=== PATIENT | female | born 1965 | race Caucasian/White ===

== ENCOUNTER 2022-02-06 11:09 | Outpatient (CLI) | payer BC, SELFPAY ==
[2022-02-06 17:55] LABS: Chloride* 105 mmol/L (96-114); Potassium* 4.2 mmol/L (3.6-5.1); Sodium* 137 mmol/L (135-149)
[2022-02-06 17:58] LABS: Carbon Dioxide* 25 mmol/L (20-32); Creatinine* 0.9 mg/dL (0.5-1.5); Estimated Glomerular Filt Rate 74 ml/min
[2022-02-06 17:59] LABS: Blood Urea Nitrogen* 22 mg/dL (7-30); Glucose* 103 mg/dL (60-115)
== END 2022-02-06 11:10 | disposition home or self-care (01) ==
LOC: LONREF 11:10
PROVIDERS: PCP Nurse Practitioner Family; Visit Provider Nurse Practitioner Family
DX: Z01.818 Encounter for other preprocedural examination (principal)
CPT/HCPCS: 80048

== ENCOUNTER 2022-02-19 07:41 | Day surgery (SDC) | payer BC, SELFPAY ==
[2022-02-12] MEDS: MIDAZOLAM HCL 1 MG/ML inj IVP (09:20)
[2022-02-19] VITALS (12 sets, daily range): BP systolic 100–125; BP diastolic 43–70; PULSE 52–73; RESP 16–20; TEMP 35.9–36.2; O2SAT 91–100; BMI 28.7
--- NOTE | 2022-02-19 | CRLHL7_ITS ---
For Patients: As a result of the Century Cures Act, medical imaging exams and procedure reports are released immediately into your electronic medical record. You may view this report before your referring provider. If you have questions, please contact your health care provider. INDICATION: Intraoperative. TECHNIQUE: Intraoperative C-arm fluoroscopy. IMPRESSION: Intraoperative C-arm fluoroscopy was provided. Fluoroscopy time 22.8 seconds. Two images were captured. Dictated by Eduard Bess MD @ 02/19/2022 11:33:46 AM (Electronically Signed)
[2022-02-19] MEDS: LACTATED RINGERS 1000 ML 1,000 ML 100 ML IV (08:00)
[2022-02-19] MEDS: SODIUM CHLORIDE 0.9 % (FLUSH) 10 ML SYRINGE IVF (08:40)
[2022-02-19] MEDS: fentaNYL 100 MCG/2 ML inj IVP (09:20)
--- NOTE | 2022-02-19 09:23 | P.NB_ITS ---
Nerve Block Nerve Block Time Seen by Provider: 09:23 Date Seen: 02/19/22 Type of block requested by surgeon for post-operative analgesia: popliteal Side: left Time out performed: Yes Verification of patient name: Yes Verification of date of : Yes Site marking: site marked Name of person performing procedure: Yariel Continuous monitoring Was continuous monitoring of O2 sat, B/P, environmental monitoring technician, recorded every 15 minutes?: Yes Procedure Checklist: sterile prep, needles and gloves Ultrasound guided. Images saved: Yes Medications given in 5ml increments after negative aspiration: Ropivicaine %: 0.5 mL: 30 Needle gauge: 22 Patient tolerated procedure well: Yes Additional comments: Needle noted adjacent to nerve Block Charges Block Charge (with Pro Fee): Sciatic Nerve Use of Ultrasound Machine for Block: Yes- US Guidance/pain block
--- NOTE | 2022-02-19 09:43 | SUR.PREOP ---
TIME?OUT:?09:15 PT/RN/MDA?VERIFICATION?OF?SURGICAL?SITE,?PROCEDURE,?AND?CONSENT OBTAINED?PRIOR?TO?INVASIVE?PROCEDURE.Correct site identified and marked. Pop block completed by Dr. Armando Saldivar MDA
[2022-02-19] MEDS: CEFAZOLIN 2 GM INJ IVP (10:08)
--- NOTE | 2022-02-19 11:32 | PM.ORPRC ---
Procedure Note Date of procedure: 02/19/22 Procedure: PREOPERATIVE DIAGNOSES: 1. 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 Left posterior calcaneus Achilles insertional osteophyte open excision with Achilles tendon open debridement of tendinopathic tissue and rerepair of Achilles tendon. 2. [id number] fluoroscopy utilization for microsagittal saw cut depth, angulation, and intraoperative assessment. SURGEON: Simone Huffman MD [facility] [employer]: Chip NAPIER Of note, an assistant professor of drama was critical for this case to aide in patient positioning, leg manipulation, tissue retraction, closure, patient safety & splinting. ANESTHESIA: General plus popliteal block EBL: Less than 5 mL mL IMPLANTS: Arthrex 4.75 mm BioComposite SwiveLock suture anchor (x3); 7.0 mm BioComposite SwiveLock suture anchor (x1) TOURNIQUET: 52 minutes at 300 INDICATIONS: The patient is a pleasant 56-year-old female who has battled Achilles tendinopathy on the left side. They have tried extensive nonoperative management including formal physical therapy and eccentric strengthening. Unfortunately, the pain has persisted. Additionally, x-rays revealed the large osteophyte off the posterior calcaneus at the Achilles insertion site. Shoe wear was becoming quite difficult. Given these findings and the failure of nonoperative management, surgery was indicated. FINDINGS: Tendinopathic tissue on the deep surface with some calcification within it at the distal 2 cm. Osteophyte off the Achilles insertion on the posterior calcaneus noted. For PROCEDURE: Following a thorough discussion of risks, benefits, and alternatives, consent was obtained and the left ankle was marked. The patient was brought to the operating room and placed supine on the operating table. Induction of anesthesia was undertaken. They were then flipped prone Appropriate time out was performed identifying proper patient, site and procedure. 2 g IV Ancef was administered within 1 hour of incision preoperatively. The left lower extremity was prepped and draped in the appropriate sterile fashion using ChloraPrep prep after the patient had been positioned prone with all bone prominences well padded and soft anatomic prominences free from pressure. The limb was exsanguinated and the tourniquet inflated. A curvilinear incision was made from the posterior heel curving medially along this Gagandeep's deformity and extending proximally along the medial Achilles border. Sharp incision through skin allowed us to identify the peritenon. Full-thickness subcutaneous flap was then elevated over the dorsum of the Achilles tendon. The Achilles tendon was elevated from the calcaneus with a 15 blade sharply. This was elevated from the medial side across to the lateral side. Caution was taken along the medial portion for the neurovascular bundle. The calcaneus osteophyte was excised with combination of rongeur and microsagittal saw. C-arm fluoroscopic imaging was utilized intraoperatively to guide the saw cut direction and depth. The edges of the cut were also debrided with the rongeur and rasp to help smooth off the corners. A speed bridge configuration with SwiveLock suture anchors was then planned. 2 proximal and 2 distal anchors were drilled, tapped, and placed with a speed bridge configuration. Of note, the distal lateral anchor did not have good hold with a 4.75 mm SwiveLock and thus this was exchanged to a 7.0 mm BioComposite SwiveLock suture anchor. Good hold was encountered here. Excellent reapproximation of the Achilles tendon was achieved with good security. The extra eyelet sutures from the proximal anchors were then passed in horizontal mattress fashion proximal to where the fiber tapes came through to help with added security of this tissue. The free suture from the distal anchors was also passed in horizontal mattress fashion to help with small dog ears. Thorough irrigation normal saline was performed prior to closure. At this stage the tourniquet was deflated. Hemostasis was achieved. 2-0 Vicryl and 4-0 Stratafix for subcutaneous and subcuticular closure, respectively. A splint was applied, the patient was woken from anesthesia, and transferred to the PACU in stable condition. PLAN: 1. Elevate operative extremity. 2. Encouraged ice. 3. Percocet for pain as needed. 4. Follow up with PA visit in 1-2 weeks for splint removal and wound check. Anticipate Achilles boot application with the foot in plantar flexion. Heel wedges. Eventually take out a heel wedge as she is able. Likely weekly. 5. Toe touch Weightbear operative extremity.
--- NOTE | 2022-02-19 11:59 | W.ANESCHARGE ---
Anesthesia Charges Start Date/Time Anesthesia Start Date: 02/19/22 Anesthesia Start Time: 10:00 Stop Date/Time Anesthesia Stop Date: 02/19/22 Anesthesia Stop Time: 12:00 Summary Emergency: No
--- NOTE | 2022-02-19 12:23 | W.ANESCHARGE ---
Anesthesia Charges Start Date/Time Anesthesia Start Date: 02/19/22 Anesthesia Start Time: 10:00 Stop Date/Time Anesthesia Stop Date: 02/19/22 Anesthesia Stop Time: 12:00 Summary Emergency: No
--- NOTE | 2022-02-19 12:37 | W.ANESCHARGE ---
Anesthesia Charges Start Date/Time Anesthesia Start Date: 02/19/22 Anesthesia Start Time: 10:00 Stop Date/Time Anesthesia Stop Date: 02/19/22 Anesthesia Stop Time: 12:00 Summary Emergency: No
== END 2022-02-19 14:03 | disposition home or self-care (01) ==
PROVIDERS: PCP Nurse Practitioner Family; Visit Provider Orthopaedic Surgery Sports Medicine
PROC: (CPT 27650; principal; 2022-02-19 10:00)
DX: M76.62 Achilles tendinitis, left leg (principal); M77.32 Calcaneal spur, left foot
CPT/HCPCS: 27650; 28119; 01472; 64445; 73600; 76942; 97161; A4580; C1713; J0690; J1100; J2250; J2405; J2704; J2795; J3010; J7120

== ENCOUNTER 2022-03-25 09:02 | Outpatient (CLI) | payer BC, SELFPAY ==
[2022-03-26 07:55] LABS: SARS PCR* POSITIVE SARS-CoV-2 (Negative)
== END 2022-03-25 09:03 | disposition home or self-care (01) ==
LOC: LONREF 09:02
PROVIDERS: PCP Nurse Practitioner Family; Visit Provider Nurse Practitioner Family
DX: Z11.52 Encounter for screening for COVID-19 (principal)
CPT/HCPCS: 87635

== ENCOUNTER 2022-07-02 16:15 | Outpatient (RCR) | payer BC, SELFPAY | END 2022-07-03 08:58 | disposition home or self-care (01) | PROVIDERS: PCP Nurse Practitioner Family; Visit Provider Physician Assistant Surgical | DX: Z98.890 Other specified postprocedural states (principal); Z51.89 Encounter for other specified aftercare | CPT/HCPCS: 97110; 97140; 97162 ==

== ENCOUNTER 2023-01-22 09:32 | Outpatient (CLI) | payer BC, SELFPAY | END 2023-01-22 09:33 | disposition home or self-care (01) | LOC: LONREF 09:33 | PROVIDERS: PCP Nurse Practitioner Family; Visit Provider Nurse Practitioner Family | DX: E03.9 Hypothyroidism, unspecified (principal) | CPT/HCPCS: 84443 ==

== ENCOUNTER 2023-05-14 09:00 | Outpatient (CLI) | payer BC, SELFPAY ==
--- NOTE | 2023-05-14 09:15 | CRLHL7_ITS ---
For Patients: As a result of the Century Cures Act, medical imaging exams and procedure reports are released immediately into your electronic medical record. You may view this report before your referring provider. If you have questions, please contact your health care provider. BILATERAL SCREENING MAMMOGRAM WITH COMPUTER-AIDED DETECTION TECHNIQUE: CC and MLO views were obtained. These mammographic images have been obtained using full-field digital technique. These mammographic images were interpreted with the benefit of computer-aided detection. COMPARISON FILM: 01/09/20, 01/29/18, 08/22/11. FINDINGS: The breasts are heterogeneously dense, which may obscure small masses. IMPRESSION: There is no radiographic evidence for malignancy. ASSESSMENT: BI-RADS Category 1: Negative RECOMMENDATION: Routine screening mammogram in 1 year. A lay language report of this examination will be provided to the patient. KRYSTLE RANDLE M.D. Diagnostic/Nuclear Medicine Radiologist [email or web address] Transcribed: 1:[address]/Dictated by: Krystle Randle MD @ 05/15/2023 10:17:00 AM (Electronically Signed)
== END 2023-05-14 09:01 | disposition home or self-care (01) ==
LOC: MAMMO 09:01
PROVIDERS: PCP Nurse Practitioner Family; Visit Provider Nurse Practitioner Family
DX: Z12.31 Encounter for screening mammogram for malignant neoplasm of breast (principal); R92.2 Inconclusive mammogram
CPT/HCPCS: 77067

== ENCOUNTER 2023-10-05 11:04 | Emergency (ER) | payer BC, SELFPAY ==
[2023-10-05] VITALS (11 sets, daily range): BP systolic 116–139; BP diastolic 59–75; PULSE 65–75; RESP 14; TEMP 36.7; O2SAT 94–98; BMI 29.2
--- NOTE | 2023-10-05 11:19 | ED_ITS ---
HPI - Chest Pain General Time Seen by Provider: 11:19 Date Seen: 10/05/23 Chief Complaint: Chest Pain Stated Complaint: chest pain Time Seen by Provider: 10/05/23 11:19 Source: patient, RN notes reviewed and old records reviewed Mode of arrival: ambulatory Limitations: no limitations History of Present Illness HPI narrative: A 58-year-old female who comes in today with chest pain. Recent diagnosis of sinusitis and started on Augmentin a couple days ago. Patient reports chest tightness ongoing for the last couple of days. No associated cough, nausea, vomiting, abdominal pain. Not worse with movement or activity, not worse lying down or with eating or drinking. Has taken Tums for this with minimal improvement. Related Data Home Medications Medication Instructions Recorded Confirmed triamcinolone acetonide 0.5 % 1 applic topical PRN 02/03/22 02/26/23 topical cream Previous Rx's Medication Instructions Recorded levothyroxine 112 mcg tablet 112 mcg PO DAILY #90 tabs 01/23/23 amoxicillin 875 mg-potassium 1 tab PO BID #20 tabs 10/03/23 clavulanate 125 mg tablet doxycycline hyclate 100 mg capsule 100 mg PO BID #14 caps 10/05/23 prednisone 20 mg tablet 20 mg PO BID #10 tabs 10/05/23 Allergies Allergy/AdvReac Type Severity Reaction Status Date / Time adhesive Allergy Mild Skin Verified 10/05/23 13:36 sensative codeine Allergy Mild Madeline Verified 10/05/23 13:36 cheeks hydrocodone Allergy Mild Flushed Verified 10/05/23 13:36 cheeks PFSH PFSH Medical History (Updated 10/05/23 @ 13:46 by Jose Bey MD) Bursitis of right hip ?M70.71 - Other bursitis of hip, right hip (ICD-10) Right hip pain ?M25.551 - Pain in right hip (ICD-10) Health care directive on file ?Z78.9 - Other specified health status (ICD-10) History of hyperthyroidism (12/14/09) ?Z86.39 - Personal history of other endocrine, nutritional and metabolic disease (ICD-10) History of nephrolithotomy with removal of calculi ?Z98.890 - Other specified postprocedural states (ICD-10) ?Z87.442 - Personal history of urinary calculi (ICD-10) Surgical History Status post Achilles tendon repair ?Z98.890 - Other specified postprocedural states (ICD-10) History of tonsillectomy and adenoidectomy ?Z90.89 - Acquired absence of other organs (ICD-10) History of hysterectomy (~2001) ?Z90.710 - Acquired absence of both cervix and uterus (ICD-10) History of cholecystectomy (~2019) ?Z90.49 - Acquired absence of other specified parts of digestive tract (ICD- 10) History of appendectomy (~2001) ?Z90.49 - Acquired absence of other specified parts of digestive tract (ICD- 10) Family History Aunt Alzheimers disease Dementia Social History Smoking Status: Never smoker Do you use any of these nicotine containing products: None Second hand tobacco smoke exposure: No How often do you have a drink containing alcohol: monthly or less AUDIT-C Alcohol total score: 1 Non-prescribed substance use: denies use Caffeine: No Little interest or pleasure in doing things: not at all Feeling down, depressed, or hopeless: not at all Are you using contraception or practicing any form of control: No Exam Narrative Exam Narrative: General: Well-developed and well-nourished, no acute distress Head: Atraumatic and normocephalic Eyes: Pupils are equal reactive, extraocular motions intact, conjunctiva clear ENT: External nose and ears are normal, posterior pharynx without erythema or exudate Neck: No midline cervical tenderness, full spontaneous range of motion the neck, trachea midline, no adenopathy Heart: Regular rate and rhythm no murmurs or thrills Lungs: Clear to auscultation bilaterally without wheezes or crackles Abdomen: Soft, nontender, nondistended with active bowel sounds Musculoskeletal: No tenderness, deformity, or edema Neurologic: Awake, alert, and oriented x3, no gross focal neurologic deficits, cranial nerves intact as tested Psych: Mood and affect are appropriate Skin: No rashes Const Vital Signs, click to edit/add: Vital Signs - 24 hr 10/05/23 11:05 10/05/23 11:21 10/05/23 11:30 Temperature 98.1 F Pulse Rate 69 68 Pulse Rate [Pulse Oximeter] 71 Respiratory Rate 14 Blood Pressure Blood Pressure [Right Upper Arm] 139/75 Pulse Oximetry 98 96 96 Oxygen Delivery Method Room Air 10/05/23 11:32 10/05/23 11:33 10/05/23 12:04 Temperature Pulse Rate 72 72 67 Pulse Rate [Pulse Oximeter] Respiratory Rate Blood Pressure 116/59 L Blood Pressure [Right Upper Arm] Pulse Oximetry 94 94 94 Oxygen Delivery Method 10/05/23 12:05 Temperature Pulse Rate 66 Pulse Rate [Pulse Oximeter] Respiratory Rate Blood Pressure 117/75 Blood Pressure [Right Upper Arm] Pulse Oximetry 95 Oxygen Delivery Method Course Course ED Course: Patient seen and examined, prior records are reviewed. Reviewed prior office visit from October 02 when patient was started on Augmentin for sinusitis. Patient presents today with chest tightness that has been constant for 2 days, no relieving or exacerbating factors. On exam here, patient appears anxious, vital is stable. EKG is reassuring, no upper abdominal tenderness to suggest pancreatitis or gastritis, consider reflux. Trace expiratory wheeze on lung exam and bronchitis possible especially in light of recently diagnosed bronchitis. Labs and x-ray are ordered along with DuoNeb and GI cocktail. Reevaluation(s) Time of Reevaluation #1: 12:25 Reevaluation #1: Chest x-ray independently interpreted by me with some nodules on the left base, no other acute findings. Labs ordered and independently interpreted by me with initial troponin 0, given pain for the last 2 days, acute coronary syndrome unlikely. Remaining labs are pending. Time of Reevaluation #2: 12:44 Reevaluation #2: Labs ordered in panel interpreted by me with normal basic metabolic panel, normal hepatic panel, negative BNP, normal lipase. D-dimer elevated at 2.2, CT PE study is ordered. Time of Reevaluation #3: 13:17 Reevaluation #3: CT scan of the chest independently interpreted by me does not demonstrate a large central pulmonary embolism, there are a couple of nodules in the left lung that will need follow-up, also question of some infiltrate in the anterior left lung. Additional Reevaluation(s): 1:38 p.m. reviewed radiology interpretation of chest CT. This demonstrates central bronchial thickening with mucoid in passing which could represent inflammatory infiltrate, underlying malignancy is not excluded. Discussed findings with the patient. She will be started on prednisone and doxycycline, in should finish the Augmentin that was previously prescribed for sinusitis. She should follow-up with pulmonology for re-evaluation and possible tissue sampling. Vital Signs Vital signs: Initial Vital Signs Temperature 98.1 F 10/05/23 11:05 Temperature Source Temporal Artery Scan 10/05/23 11:05 Pulse Rate 71 10/05/23 11:05 Pulse Rhythm Regular 10/05/23 11:05 Respiratory Rate 14 10/05/23 11:05 Blood Pressure 139/75 10/05/23 11:05 Blood Pressure Mean 96 10/05/23 11:05 Blood Pressure Position Supine 10/05/23 11:05 Pulse Oximetry 98 10/05/23 11:05 Oxygen Delivery Method Room Air 10/05/23 11:05 Vital Signs Temperature 98.1 F 10/05/23 11:05 Pulse Rate 71 10/05/23 11:05 Respiratory Rate 14 10/05/23 11:05 Blood Pressure 139/75 10/05/23 11:05 Pulse Oximetry 98 10/05/23 11:05 Oxygen Delivery Method Room Air 10/05/23 11:05 Temperature 98.1 F 10/05/23 11:05 Pulse Rate 66 10/05/23 12:05 Respiratory Rate 14 10/05/23 11:05 Blood Pressure 117/75 10/05/23 12:05 Pulse Oximetry 95 10/05/23 12:05 Oxygen Delivery Method Room Air 10/05/23 11:05 Medications Administered Medications: Discontinued Medications Generic Name Dose Route Start Last Admin Trade Name Trinh PRN Reason Stop Dose Admin Albuterol/Ipratropium 1 neb 10/05/23 11:30 10/05/23 12:12 Iprat-Albut 0.5-2.5 Mg/3 Ml Neb IH 10/05/23 11:31 1 neb ONCE ONE Administration Lidocaine/Aluminum/Magnesium/Simeth 15 ml 10/05/23 11:30 10/05/23 12:10 Mag Hydrox/Aluminum Hyd/Simeth 30 Ml Oral.Susp PO 10/05/23 11:31 15 ml ONCE ONE Administration MDM - Chest Pain Lab Data Labs: Lab Results 10/05/23 10/05/23 Range/Units 11:31 11:44 D-Dimer Quant (PE/DVT) 2.20 H (0.00-0.50) ug/ml Sodium 138 (135-149) mmol/L Potassium 4.0 (3.6-5.1) mmol/L Chloride 105 (96-114) mmol/L Carbon Dioxide 26 (20-32) mmol/L Anion Gap 7 (7-15) mEq/L BUN 19 (7-30) mg/dL Creatinine 0.9 (0.5-1.5) mg/dL Estimated Creat Clear 57.40 Estimated GFR 73 ml/min Glucose 96 (60-115) mg/dL Calcium 9.4 (8.4-10.6) mg/dL Magnesium 2.3 (1.5-2.6) mg/dL Total Bilirubin 0.6 (0.1-1.5) mg/dL Direct Bilirubin 0.2 (0.0-0.5) mg/dL AST 20 (12-35) U/L ALT 13 (4-35) U/L Alkaline Phosphatase 94 (40-150) U/L NT-Pro-B Natriuret Pep 41 pg/mL Total Protein 7.5 (6.0-8.3) g/dL Albumin 4.1 (3.3-5.0) g/dL Lipase 70 (23-300) U/L POC Troponin I 0.00 L (0.01-0.04) ng/ml ECG Data Attestation: I personally reviewed and interpreted this ECG as follows: ECG interpretation date: 10/05/23 ECG interpretation time: 11:14 Prior ECG tracings: available for review Interpretation: Independently interpreted by me performed at 11 14 a.m. demonstrates normal sinus rhythm rate 70, nonspecific T-wave changes, no acute ischemic changes, normal axis, normal intervals, QTC 416, NH 128. Compared to prior of January 2022, no acute changes are seen Discharge Plan Discharge Clinical Impression: Pulmonary infiltrate, Atypical pneumonia, Incidental lung nodule Patient Disposition: Home, Self-Care Condition: Stable Instructions: Pulmonary Nodules (ED), Pneumonia (ED) Additional Instructions: Continue your Augmentin. Start taking doxycycline and prednisone as well. Follow-up with pulmonology [facility] [phone] [place] [phone] [facility] ([facility]) [phone] Activity Level: No Restrictions Discharge Diet: Regular Prescriptions: New prednisone 20 mg tablet 20 mg PO BID Qty: 10 0RF doxycycline hyclate 100 mg capsule 100 mg PO BID Qty: 14 0RF No Action triamcinolone acetonide 0.5 % cream 1 applic topical PRN levothyroxine 112 mcg tablet 112 mcg PO DAILY Qty: 90 3RF amoxicillin-pot clavulanate 875-125 mg tablet 1 tab PO BID Qty: 20 0RF Follow Up/Referrals: Alda Fulton DECAL MAKER [Primary Care Provider] - Stand Alone Forms: MyHealth Info Instructions
--- NOTE | 2023-10-05 11:31 | XR_ITS ---
Patient: CELINA PRICE Facility:?[facility] Patient ID:?[id number] Site Patient ID:?[id number]. Site :?[id number] Study:?XRay-Chest 2 VIEW-10/05/2023 12:08:03 PM Ordering Physician:TOMAS Final Report: Indication: Chest pain Technique: Chest 2 views Comparison: None Findings/Impression: Cardiovascular and mediastinum: Heart size and vasculature are normal in caliber and appearance. Mediastinum is within normal limits. Lungs and pleural spaces: No pleural effusion or pneumothorax. Slight density overlying the left lung base, possibly part of a nipple shadow or other soft tissue artifact as this is not well seen on the lateral view. Bones and soft tissues: Upper abdominal surgical clips. Dictated by Eduard Box MD @ 10/05/2023 12:31:39 PM Signed by:?Eduard Box MD @10/05/2023 12:31:39 PM (Electronic Signature)
[2023-10-05] MEDS: MAG HYDROX/ALUMINUM HYD/SIMETH 30 ML ORAL.SUSP 15 ML PO (12:10)
[2023-10-05 12:11] LABS: Albumin* 4.1 g/dL (3.3-5.0); Chloride* 105 mmol/L (96-114)
[2023-10-05 12:12] LABS: Sodium* 138 mmol/L (135-149)
[2023-10-05] MEDS: IPRAT-ALBUT 0.5-2.5 MG/3 ML NEB 1 NEB IH (12:12)
[2023-10-05 12:14] LABS: Alkaline Phosphatase* 94 U/L (40-150); Anion Gap 7 mEq/L (7-15); Aspartate Amino Transferase* 20 U/L (12-35); Bilirubin Direct* 0.2 mg/dL (0.0-0.5); Bilirubin Total* 0.6 mg/dL (0.1-1.5); Blood Urea Nitrogen* 19 mg/dL (7-30); Calcium* 9.4 mg/dL (8.4-10.6); Carbon Dioxide* 26 mmol/L (20-32); Creatinine* 0.9 mg/dL (0.5-1.5); Estimated Glomerular Filt Rate 73 ml/min; Glucose* 96 mg/dL (60-115); Lipase* 70 U/L (23-300); Total Protein* 7.5 g/dL (6.0-8.3)
[2023-10-05 12:15] LABS: Alanine Aminotransferase* 13 U/L (4-35); Magnesium* 2.3 mg/dL (1.5-2.6)
[2023-10-05 12:26] LABS: NT Pro B Type NatriureticPept* 41 pg/mL
--- NOTE | 2023-10-05 12:45 | CT_ITS ---
Patient: CELINA PRICE Facility:?[facility] Patient ID:?[id number] Site Patient ID:?[id number]. Site :?[id number] Study:?CT-Chest PE 95CC ISOVUE 370-10/05/2023 1:15:23 PM Ordering Physician:TOMAS Final Report: Indication: Chest pain, dyspnea Technique: Volumetric multidetector CT images of the chest were obtained after the administration of IV contrast. 95 cc Isovue 370 low osmolar intravenous contrast Comparison: None available. Findings: The thoracic inlet and thyroid gland are unremarkable. The thoracic aorta is nonaneurysmal. There is mild encasement of the left hilum. There is no obvious filling defect to suggest pulmonary embolus. There are enlarged left hilar lymph nodes the largest along the inferior hilum measuring up to 2.1 centimeters on series 7, image 75. No axillary adenopathy is appreciated. There is mild central bronchial thickening and mucoid impaction of the left lower lobe bronchi. There is interstitial prominence likely representing mild pulmonary edema with basilar atelectasis and parenchymal scar. There is demonstration of somewhat masslike airspace opacity within the anterior inferior left upper lobe with additional nodular opacities appreciated on series 7, image 98 the largest measuring up to 1.8 centimeters. Additional nodule within the left costophrenic sulcus is again noted measuring up to 1.3 centimeters. The partially visualized upper abdominal viscera are within normal limits. The thoracic vertebral body heights are grossly maintained with mild to moderate degenerative disc disease. There is no significant spondylolisthesis or displaced fracture. Impression: Demonstration of moderate central bronchial thickening and mucoid impaction with masslike airspace opacities in the peripheral anterior left upper and left lower lobes with markedly enlarged left hilar lymph nodes. Overall, findings could represent atypical inflammatory infiltrate; however, an underlying malignancy with metastatic lymph nodes is not entirely excluded. Recommend follow-up with bronchoscopy and/or tissue sampling for improved characterization. No evidence of filling defect to suggest pulmonary embolus. Please note that all CT scans at this facility use dose modulation, iterative reconstruction, and/or weight-based dosing when appropriate to reduce radiation dose to as low as reasonably achievable. Dictated by Ezio Mello MD @ 10/05/2023 1:30:05 PM Signed by:?Ezio Mello MD @10/05/2023 1:30:05 PM (Electronic Signature)
== END 2023-10-05 14:05 | disposition home or self-care (01) ==
PROVIDERS: Emergency Provider Family Medicine; PCP Nurse Practitioner Family
DX: J18.9 Pneumonia, unspecified organism (principal); R91.8 Other nonspecific abnormal finding of lung field
CPT/HCPCS: 36415; 71046; 71275; 80048; 80076; 83690; 83735; 83880; 84484; 85379; 93005; 94640; 99284; 99285; A9270; Q9967

== ENCOUNTER 2024-01-26 10:00 | Outpatient (CLI) | payer BC, SELFPAY ==
--- OUTSIDE RECORDS SUMMARY | 2024-01-26 10:06 | XMS_ITS | Encounter Summary ---
Author Organization [facility] Address [address] [place] [address] Support Name Relationship Address Phone Caden Arauz Emergency Contact [address] [place] [address] Liliana Santos Emergency Contact [address] [place] [address] Care Team Providers Care School Bus Technician Name Role Phone Unavailable Primary Care Provider Unavailabl e Reason for Visit * Reason Onset Date Comments Pre-visit Intake 11/30/2023 Encounter Details Date Type Department Care Team (Latest Contact Info) Description 11/30/2023 3:45 PM CDT Clinical Communication Virtual Review in [place], [place] [address] [place] [address] Pre-visit Intake Social History Tobacco Use Types Packs/Day Years Used Date Smoking Tobacco: Never Smokeless Tobacco: Never Tobacco Cessation:Counseling Given: Not Answered [facility] Utilities Answer Date Recorded In the past 12 months has e electric, gas, oil, or water company threatened to shut off services in your home? No 11/26/2023 Exercise Vital Sign Answer Date Recorde d On average, how many days pe r week do you engage in moderate to strenuous exercise (like a brisk walk)? 7 days 11/26/2023 On average, how many minutes do you engage in exercise at this level? 30 min 11/26/2023 Hunger Vital Sign Answer Date Recorded Within the past 12 months, y ou worried that your food would run out before you got the money to buy more. Never true 11/26/19 24 Within the past 12 months, t he food you bought just didn't last and you didn't have money to get more. Never true 11/26/2023 PRAPARE - Transportation Answer Date Re corded In the past 12 months, has l ack of transportation kept you from medical appointments or from getting medications? No 08/2023 In the past 12 months, has l ack of transportation kept you from meetings, work, or from getting things needed for daily living? No 11/26/2023 Nutrition Answer Date Recorded On average, how many serving s of fruits and vegetables do you eat per day (serving size is equal to 1 cup or approximately the size of a tennis ball)? 0-2 11/26/2023 Dental Answer Date Recorded Dental: Regular Dentist Yes 11/26/19 Employment Answer Date Recorded Employment status Employed and actively working without restrictions 11/26/2023 Housing Stability Answer Date Recorded What is your living situation today? I have a [facility] place to live 11/26/2023 Sex and Gender Information Value Date Recorded Sex Assigned at Female 11/26/2023 6:07 AM CDT Gender Identity Female 11/26/2023 6:07 AM CDT Sexual Orientation Straight 11/26/2023 6: 07 AM CDT documented as of this encounter Plan of Treatment Not on file documented as of this encounter Visit Diagnoses Not on filedocumented in this encounter Care Teams School Bus Technician Relationship Specialty Start Date End Date Alda Fulton External Primary Care Physician 07/27/20 documented as of this encounter
--- OUTSIDE RECORDS SUMMARY | 2024-01-26 10:06 | XMS_ITS | Clinical Summary ---
Author Organization [facility] Address [address] [place] [address] Support Name Relationship Address Phone Caden Arauz Emergency Contact [address] [place] [address] Liliana Santos Emergency Contact [address] [place] [address] Care Team Providers Care Provider Relations Representative Name Role Phone Unavailable Primary Care Provider Unavailabl e Source Comments Patient records contain information from all sites at [facility]. For routine questions regarding patient records, call [phone] during business hours, M-F 8:00 AM - 5:00 PM Central Time. Record requests for emergency care only can be directed to [phone] at any time.[facility] Allergies Active Allergy Reactions Criticality Noted Date Comments Adhesive Rash 11/30/2023 Codeine Rash 11/30/2023 Methimazole Other (see comments) 11/30/2023 Medications Medication Sig Dispensed Refills Start Date End Date Status levothyroxine (SYNTHROID, LEVOTHROID) 112 mcg tablet 12/26/2001 Active Encounters Date Type Department Care Team Description 12/01/2023 10:00 AM CDT Comprehensive Visit Division of Pulmonary Medicine in [place], [place] [address] [place] [address] Héctor Jules M.D., M.B.A. Lymphadenopathy Mediastinum (Primary Dx); Nodule Pulmonary 12/01/2023 6:52 AM CDT - 12/01/2023 11:59 PM CDT Hospital Encounter Department of Radiology, [facility], in [place], [place] [address] [place] [address] Franky Soto M.D. Nodules Pulmonary Multiple Discharge Disposition: Home or Self Care 11/30/2023 3:45 PM CDT Clinical Communication Virtual Review in [place], [place] [address] [place] [address] Pre-visit Intake 11/02/2023 Virtual Visit Division of Pulmonary Medicine in [place], [place] [address] [place] [phone] Franky Soto M.D. Eosinophilia Pulmonary With Infiltrate (HCC) (Primary Dx) 11/02/2023 Orders Only Division of Pulmonary Medicine in [place], [place] [address] [place] [phone] Franky Soto M.D. Nodules Pulmonary Multiple (Primary Dx) from Last 3 Months Social History Tobacco Use Types Packs/Day Years Used Date Smoking Tobacco: Never Smokeless Tobacco: Never Tobacco Cessation:Counseling Given: Not Answered [facility] AccessDataities Answer Date Recorded In the past 12 months has [facility] [employer], gas, oil, or water [employer] threatened to shut off services in your [...] your living situation today? I have a [facility] place to live 11/26/2023 Sex and Gender Information Value Date Recorded Sex Assigned at Female 11/26/2023 6:07 AM CDT Gender Identity Female 11/26/2023 6:07 AM CDT Sexual Orientation Straight 11/26/2023 6: 07 AM CDT Last Filed Vital Signs Vital Sign Reading Time Taken Comments Blood Pressure 144/75 12/01/2023 9:41 AM CDT Pulse 61 12/01/2023 9:41 AM CDT Temperature 36.9 ??C (98.4 ??F) 12/01/2023 9:41 AM CD T Respiratory Rate - - Oxygen Saturation 98% 12/01/2023 9:41 AM CDT Inhaled Oxygen Concentration - - Weight 79.2 kg (174 lb 9.7 oz) 12/01/2023 9:41 A M CDT Height 160.6 cm (5' 3.23) 12/01/2023 9:41 AM CD T Body Mass Index 30.71 12/01/2023 9:41 AM CDT Plan of Treatment Health Maintenance Due Date Last Done Comments CT Colonography 1963 Cervical Cancer Screening 1963 Cologuard 1963 Colonoscopy 1963 Colorectal Cancer Screening 1963 FIT 1963 Fasting Glucose for Diabetes Screening 1963 HIV Screening 1963 Hepatitis C Screening 1963 Lipid (Cholesterol) Screening 1963 Mammogram 1963 Thyroid Stimulating Hormone (TSH) test for thyroid function 1963 Depression Screening (Annual PHQ-2) 07/27/2023 DTaP,Tdap,and Td Vaccines (3 - Td or Tdap) 06/13/2032 06/13/2022, 02/24/2012, 04/03/2003 Zoster Vaccines Completed 01/23/2022, 11/22/2021 COVID-19 Vaccine Completed 06/26/2023, , 11/12/2021, Additional history exists Influenza Vaccine Completed 06/26/2023, 07/16/2022 Hepatitis B Vaccines Aged Out No long er eligible based on patient's age to complete this topic Pneumococcal vaccine (0-64 years) Aged Out No longer eligible based on patient's age to complete this topic Medical Devices Implanted Type Area It Security Manager Device Identifier Shelf Expiration Date Model / Serial / Lot Gi Other GI Other Midline: Ascending Colon Procedures Procedure Name Priority Date/Time Associated Diagnosis Comments CT CHEST WITHOUT IV CONTRAST RAD - Routine (most inpatients and all outpatients) 12/01/2023 7:21 AM CDT Nodules Pulmonary Multiple from Last 3 Months Results * CT Chest without IV Contrast (12/01/2023 7:21 AM CDT) Anatomical Region Laterality Modality Chest, Thoracic RST LOS, Tho racic ARZ LOS, Thoracic FLA LOS N/A Computed Tomography, Compute d Tomography Impressions 12/01/2023 8:13 AM CDT Similar multifocal and bilateral lymphatic distribution noncalcified solid pulmonary nodularity centered in the peripheral anteromedial left lung base and inferior lingula and measuring up to average 16.5 mm. Similar noncalcified left infrahilar and subcarinal mediastinal lymphadenopathy. Favor atypical infection/pulmonary histoplasmosis but additional considerations include pulmonary sarcoidosis and primary lung malignancy and metastatic disease. Follow-up guidelines provided. Narrative 12/01/2023 8:13 AM CDT EXAM: CT CHEST WITHOUT IV CONTRAST COMPARISON: PA and lateral chest radiographs from an outside institution dated 10/05/2023. CTA chest pulmonary embolism protocol with IV contrast from an outside institution dated 10/05/2023. Corresponding outside institution imaging interpretation are not available at this time. FINDINGS: Similar clustered irregular noncalcified solid pulmonary nodularity in the peripheral left lower lobe anteromedial basal and inferior lingular segments. Dominant pulmonary nodule measures 18 mm x 15 mm in the anteromedial left lung base (series 3, image 317 and [id number] in series 1000). Dominant nodule contacts the thickened inferolateral left major fissure (series 6, image 26). Multiple satellite lymphatic distribution (peribronchovascular, interlobular septal, centrilobular, subpleural, and perifissural) noncalcified solid pulmonary nodules measuring between sub-3 mm and 13 mm greatest dimension. Dominant satellite nodule measures 13 mm x 10 mm in the inferior lingula (series 3, image 361 and [id number] in series 1000). Dominant solid nodule contacts the thickened left major fissure (series 6, image 28). Similar scattered noncalcified solid pulmonary nodules in the remaining bilateral lobes of the lungs measuring between sub-3 mm and 7 mm greatest dimension. Examples: Sub-3 mm, subpleural, peripheral left upper lobe anterior segment (series 3, image 96). Sub-3 mm, centrilobular, peripheral anterior right apex (series 3, image 141). 7 mm x 3 mm, subpleural, peripheral right middle lobe medial segment (series 3, image 307). Sub-3 mm, centrilobular, central right lower lobe medial basal segment (series 3, image 358). Similar mild subsegmental linear atelectasis/scarring in the caudal lungs. No pleural effusion. No pneumothorax. Similar enlarged 15 mm short axis noncalcified anterior left infrahilar lymph node (series 3, image 234). Similar enlarged 12 mm short axis noncalcified subcarinal mediastinal lymph node (series 3, image 225). Similar nonenlarged noncalcified bilateral mediastinal and hilar lymph nodes. Nondilated thoracic esophagus. No pneumomediastinum. No pericardial effusion. Nondilated main pulmonary artery. Minimal calcified atherosclerotic plaque burden of the abdominal aorta and splenic artery. Negative adrenal glands. No hepatosplenomegaly. Cholecystectomy. Hypertrophic degenerative changes of the skeleton. GUIDELINES FOR FOLLOW-UP of newly detected solid nodules incidentally detected on CT in persons 35 years or older. (2017 revision) LOW-RISK PATIENT (Minimal or absent history of smoking or of other known risk factors) For single nodule, size: <6mm ??No routine follow-up required 6-8mm CT at 6-12 months; then consider CT at 18-24 months, if no change >8mm ??Consider Pulmonary Medicine consultation for management, or follow-up with CT at 3 months For multiple nodules, size of largest nodule: <6mm ??No routine follow-up required 6mm or > CT at 3-6 months, then consider CT at 18-24 months HIGH-RISK PATIENT (History of smoking or of other known risk factors) For single nodule, size: <6mm ??Optional CT at 12 months*; If unchanged, no further follow-up required 6-8mm CT at 6-12 months; then CT at 18-24 months, if no change >8mm Consider Pulmonary Medicine consultation for management, or follow-up with CT at 3 months For multiple nodules, size of largest nodule: <6mm Optional CT at 12 months*; If unchanged, no further follow-up required 6mm or > CT at 3-6 months, then at 18-24 months (Nodule size is the average of length and width.) *Nodules <6mm do not require routine follow-up, but certain patients at high risk with suspicious nodule morphology, upper lobe location, or both may warrant 12- month follow-up. ?? Guidelines do not apply to lung cancer screening, patients with immunosuppression, or patients with a known primary cancer. Procedure Note Rola De La Cruz M.D. - 12/01/2023 EXAM: CT CHEST WITHOUT IV CONTRAST COMPARISON: PA and lateral chest radiographs from an outside institution date10/05/2023. CTA chest pulmonary embolism protocol with IV contrast from an outsideinstitution dated 10/05/2023. Corresponding outside institution imaging interpretation are not availableat this time. FINDINGS: Similar clustered irregular noncalcified solid pulmonary nodularity in theperipheral left lower lobe anteromedial basal and inferior lingularsegments. Dominant pulmonary nodule measures 18 mm x 15 mm in the anteromedial leftlung base (series 3, image 317 and [id number] in series 1000). Dominant nodule contacts the thickened inferolateral left major fissure(series 6, image 26). Multiple satellite lymphatic distribution (peribronchovascular,interlobular septal, centrilobular, subpleural, and perifissural)noncalcified solid pulmonary nodules measuring between sub-3 mm and 13 mmgreatest dimension. Dominant satellite nodule measures 13 mm x 10 mm in the inferior lingula(series 3, image 361 and [id number] in series 1000). Dominant solid nodule contacts the thickened left major fissure (series 6,image 28). Similar scattered noncalcified solid pulmonary nodules in the remainingbilateral lobes of the lungs measuring between sub-3 mm and 7 mm greatestdimension. Examples: Sub-3 mm, subpleural, peripheral left upper lobe anterior segment (series3, image 96). Sub-3 mm, centrilobular, peripheral anterior right apex (series 3, [id number]). 7 mm x 3 mm, subpleural, peripheral right middle lobe medial segment(series 3, image 307). Sub-3 mm, centrilobular, central right lower lobe medial basal segment(series 3, image 358). Similar mild subsegmental linear atelectasis/scarring in the caudallungs. No pleural effusion. No pneumothorax. Similar enlarged 15 mm short axis noncalcified anterior left infrahilarlymph node (series 3, image 234). Similar enlarged 12 mm short axis noncalcified subcarinal mediastinallymph node (series 3, image 225). Similar nonenlarged noncalcified bilateral mediastinal and hilar lymphnodes. Nondilated thoracic esophagus. No pneumomediastinum. No pericardial effusion. Nondilated main pulmonary artery. Minimal calcified atherosclerotic plaque burden of the abdominal aorta andsplenic artery. Negative adrenal glands. No hepatosplenomegaly. Cholecystectomy. Hypertrophic degenerative changes of the skeleton. GUIDELINES FOR FOLLOW-UP of newly detected solid nodules incidentallydetected on CT in persons 35 years or older. (2017 revision) LOW-RISK PATIENT (Minimal or absent history of smoking or of other knownrisk factors) For single nodule, size: <6mm No routine follow-up required 6-8mm CT at 6-12 months; then consider CT at 18-24 months, if no change >8mm Consider Pulmonary Medicine consultation for management, orfollow-up with CT at 3 months For multiple nodules, size of largest nodule: <6mm No routine follow-up required 6mm or > CT at 3-6 months, then consider CT at 18-24 months HIGH-RISK PATIENT (History of smoking or of other known risk factors) For single nodule, size: <6mm Optional CT at 12 months*; If unchanged, no further follow-uprequired 6-8mm CT at 6-12 months; then CT at 18-24 months, if no change >8mm Consider Pulmonary Medicine consultation for management, or follow-upwith CT at 3 months For multiple nodules, size of largest nodule: <6mm Optional CT at 12 months*; If unchanged, no further follow-uprequired 6mm or > CT at 3-6 months, then at 18-24 months (Nodule size is the average of length and width.) *Nodules <6mm do not require routine follow-up, but certain patients athigh risk with suspicious nodule morphology, upper lobe location, or bothmay warrant 12-month follow-up. Guidelines do not apply to lung cancer screening, patients withimmunosuppression, or patients with a known primary cancer. IMPRESSION: Similar multifocal and bilateral lymphatic distribution noncalcified solidpulmonary nodularity centered in the peripheral anteromedial left lungbase and inferior lingula and measuring up to average 16.5 mm. Similarnoncalcified left infrahilar and subcarinal mediastinal lymphadenopathy. Favor atypical infection/pulmonaryhistoplasmosis but additional considerations include pulmonary sarcoidosisand primary lung malignancy and metastatic disease. Follow-up guidelinesprovided. Franky Soto M.D. IMG CT PROCEDURES from Last 3 Months Care Teams Provider Relations Representative Relationship Specialty Start Date End Date Alda Fulton External Primary Care Physician 07/27/20
--- OUTSIDE RECORDS SUMMARY | 2024-01-26 10:06 | XMS_ITS ---
Author Organization [facility] Address [address] [place] [address] Support Name Relationship Address Phone Caden Arauz Emergency Contact [address] [place] [address] Liliana Santos Emergency Contact [address] [place] [address] Care Team Providers Care Shoe Folder Name Role Phone Unavailable Unavailable Unavailable Surgery Details Not on file Complications Check Surgery Details section. Procedure Estimated Blood Loss Check Surgery Details section. Procedure Findings Check Surgery Details section. Procedure Specimens Taken Check Surgery Details section.
--- OUTSIDE RECORDS SUMMARY | 2024-01-26 10:06 | XMS_ITS | Encounter Summary ---
Author Organization [facility] Address [address] [place] [address] Support Name Relationship Address Phone Caden Arauz Emergency Contact [address] [place] [address] Liliana Santos Emergency Contact [address] [place] [address] Care Team Providers Care Oil Agent Name Role Phone Unavailable Primary Care Provider Unavailabl e Reason for Referral * MRI/CAT/PET Scan (Routine) - Closed Specialty Diagnoses / Procedures Referred By Katlyn gallagher Referred To Contact Radiology Diagnoses Nodules Pulmonary Multiple Procedures CT Chest without IV Contrast Franky Soto M.D. [address] [place] [address] [facility] Referral ID Status Reason Start Date Expiration Date Visits Re quested Visits Authorized [id number] Closed 11/02/2023 11/01/2024 1 1 Encounter Details Date Type Department Care Team (Late st Contact Info) Description 11/02/2023 Orders Only Division of Pulmonary Medicine in [place], [place] [address] [place] [address] Franky Soto M.D. [address] [place] [phone] Nodules Pulmonary Multiple (Primary Dx) Social History Tobacco Use Types Packs/Day Years Used Date Smoking Tobacco: Never Assessed [facility] Utilities Answer Date Recorded In the past [...] your living situation today? I have a [facility] place to live 11/26/2023 Sex and Gender Information Value Date Recorded Sex Assigned at Female 11/26/2023 6:07 AM CDT Gender Identity Female 11/26/2023 6:07 AM CDT Sexual Orientation Straight 11/26/2023 6: 07 AM CDT documented as of this encounter Plan of Treatment Not on file documented as of this encounter Results * CT Chest without IV Contrast [...] lung base (series 3, image 317 and [id number] in series 1000). Dominant nodule contacts the thickened inferolateral left major fissure (series 6, image 26). Multiple satellite lymphatic distribution (peribronchovascular, interlobular septal, centrilobular, subpleural, and perifissural) noncalcified solid pulmonary nodules measuring between sub-3 mm and 13 mm greatest dimension. Dominant satellite nodule measures 13 mm x 10 mm in the inferior lingula (series 3, image 361 and [id number] in series 1000). Dominant solid nodule contacts [...] leftlung base (series 3, image 317 and [id number] in series 1000). Dominant nodule contacts the thickened inferolateral left major fissure(series 6, image 26). Multiple satellite lymphatic distribution (peribronchovascular,interlobular septal, centrilobular, subpleural, and perifissural)noncalcified solid pulmonary nodules measuring between sub-3 mm and 13 mmgreatest dimension. Dominant satellite nodule measures 13 mm x 10 mm in the inferior lingula(series 3, image 361 and [id number] in series 1000). Dominant solid nodule contacts the thickened left major fissure (series 6,image 28). Similar scattered noncalcified solid pulmonary nodules in the remainingbilateral lobes of the lungs measuring between sub-3 mm and 7 mm greatestdimension. Examples: Sub-3 mm, subpleural, peripheral left upper lobe anterior segment (series3, image 96). Sub-3 mm, centrilobular, peripheral anterior right apex (series 3, ). 7 mm x 3 mm, subpleural, peripheral [...] malignancy and metastatic disease. Follow-up guidelinesprovided. Franky SO CT PROCEDURES documented in this encounter Visit Diagnoses Diagnosis Nodules Pulmonary Multiple- Primary Nodules Pulmonary Multiple documented in this encounter Care Teams Oil Agent Relationship Specialty Start Date End Date Alda Fulton External Primary Care Physician 07/27/20 documented as of this encounter
--- OUTSIDE RECORDS SUMMARY | 2024-01-26 10:06 | XMS_ITS | Referral Summary ---
Author Organization [facility] Address [address] [place] [id number] Support Name Relationship Address Phone Caden Arauz Emergency Contact [address] [place] [address] Liliana Santos Emergency Contact [address]28 [place] [address] Care Team Providers Care Dowel Pin Man Name Role Phone Unavailable Primary Care Provider Unavailabl e Source Comments Patient records contain information from all sites at [facility]. For routine questions regarding patient records, call [phone] during business hours, M-F 8:00 AM - 5:00 PM Central Time. Record requests for emergency care only can be directed to [phone] at any time.[facility] Encounters Date Type Department Care Team Description 12/01/2023 6:52 AM CDT - 12/01/2023 11:59 PM CDT Hospital Encounter Department of Radiology, [facility], in [place], [place] [address] [place] [phone] Franky Soto M.D. Nodules Pulmonary Multiple Discharge Disposition: Home or Self Care 12/01/2023 10:00 AM CDT Comprehensive Visit Division of Pulmonary Medicine in [place], [place] [address] [place] [phone] Héctor Jules M.D., M.B.A. Lymphadenopathy Mediastinum (Primary Dx); Nodule Pulmonary 11/30/2023 3:45 PM CDT Clinical Communication Virtual Review in [place], [place] 200 [place] [address] Pre-visit Intake 11/02/2023 Virtual Visit Division of Pulmonary Medicine in [place], [place] [address] [place] [phone] Franky Soto M.D. Eosinophilia Pulmonary With Infiltrate (HCC) (Primary Dx) 11/02/2023 Orders Only Division of Pulmonary Medicine in [place], [place] [address] [place] [address] Franky Soto M.D. Nodules Pulmonary Multiple (Primary Dx) from Last 3 Months Allergies Active Allergy Reactions Criticality Noted Date Comments Adhesive Rash 11/30/2023 Codeine Rash 11/30/2023 Methimazole Other (see comments) 11/30/2023 Medications Medication Sig Dispensed Refills Start Date End Date Status levothyroxine (SYNTHROID, LEVOTHROID) 112 mcg tablet 12/26/2001 Active Social History Tobacco Use Types Packs/Day Years Used Date Smoking Tobacco: Never Smokeless Tobacco: Never Tobacco Cessation:Counseling Given: Not Answered [facility] Utilities Answer Date Recorded In the past 12 months has e [employer], gas, oil, or water [employer] threatened to shut off services in your [...] your living situation today? I have a [facility] place to live 11/26/2023 Sex and [...] 12/01/2023 9:41 AM CDT Plan of Treatment Not on file Medical Devices Implanted Type Area Senior Systems Developer Device Identifier Shelf Expiration Date Model / [...] lung base (series 3, image 317 and [id number]-jo-[id number] in series 1000). Dominant nodule contacts the thickened inferolateral left major fissure (series 6, image 26). Multiple satellite lymphatic distribution (peribronchovascular, interlobular septal, centrilobular, subpleural, and perifissural) noncalcified solid pulmonary nodules measuring between sub-3 mm and 13 mm greatest dimension. Dominant satellite nodule measures 13 mm x 10 mm in the inferior lingula (series 3, image 361 and rrbg-ix-tail in series 1000). Dominant solid nodule contacts [...] leftlung base (series 3, image 317 and prih-yc-tyyc in series 1000). Dominant nodule contacts the thickened inferolateral left major fissure(series 6, image 26). Multiple satellite lymphatic distribution (peribronchovascular,interlobular septal, centrilobular, subpleural, and perifissural)noncalcified solid pulmonary nodules measuring between sub-3 mm and 13 mmgreatest dimension. Dominant satellite nodule measures 13 mm x 10 mm in the inferior lingula(series 3, image 361 and utyx-nq-xlad in series 1000). Dominant solid nodule contacts the thickened left major fissure (series 6,image 28). Similar scattered noncalcified solid pulmonary nodules in the remainingbilateral lobes of the lungs measuring between sub-3 mm and 7 mm greatestdimension. Examples: Sub-3 mm, subpleural, peripheral left upper lobe anterior segment (series3, image 96). Sub-3 mm, centrilobular, peripheral anterior right apex (series 3, [id number]). 7 mm x 3 mm, subpleural, peripheral [...] PROCEDURES from Last 3 Months Care Teams Dowel Pin Man Relationship Specialty Start Date End Date Alda Fulton External Primary Care Physician 07/27/20
--- OUTSIDE RECORDS SUMMARY | 2024-01-26 10:06 | XMS_ITS | Encounter Summary ---
Author Organization [facility] Address [address] [place] [address] Support Name Relationship Address Phone Caden Arauz Emergency Contact [address] [place] [address] Liliana Santos Emergency Contact [address] [place] [address] Care Team Providers Care Professor Of Geology Name Role Phone Unavailable Primary Care Provider Unavailabl e Reason for Referral * Outpatient (Routine) - Authorized Specialty Diagnoses / Procedures Referred By Contac t Referred To Contact Pulmonary Medicine Héctor Jules M.D., M.B.A. 200 [place] [address] [facility] Referral ID Status Reason Start Date Expiration Date V isits Requested Visits Authorized [id number] Authorized 12/01/2023 06/01/2025 1 1 Scheduling Instructions Schedule with Mr. Saldivar or resident or [facility] consultant teacher depending on schedule availability * MRI/CAT/PET Scan (Routine) - Authorized Specialty Diagnoses / Procedures Referred By Contac t Referred To Contact Radiology Diagnoses Lymphadenopathy Mediastinum Nodule Pulmonary Procedures CT Chest without IV Contrast Héctor Jules M.D., M.B.A. [address] [place] [phone] [facility] Referral ID Status Reason Start Date Expiration Date V isits Requested Visits Authorized [id number] Authorized 12/01/2023 11/30/2024 1 1 Reason for Visit * Appointment Request (Routine) - Closed Specialty Diagnoses / Procedures Referred By Katlyn gallagher Referred To Contact Pulmonary Medicine Diagnoses Nodules Pulmonary Multiple Referral ID Status Reason Start Date Expiration Date Visits Re quested Visits Authorized [id number] Closed 10/12/2023 10/11/2024 1 1 Encounter Details Date Type Department Care Team (Latest Contact Info) Description 12/01/2023 10:00 AM CDT Comprehensive Visit Division of Pulmonary Medicine in [place], [place] [address] [place] [address] Héctor Jules M.D., M.B.A. [address] [place] [phone] Lymphadenopathy Mediastinum (Primary Dx); Nodule Pulmonary Social History Tobacco Use Types Packs/Day Years Used Date Smoking Tobacco: Never Smokeless Tobacco: Never [facility] Utilities Answer Date Recorded In the past 12 months has [employer], gas, oil, or water [employer] threatened to shut off services in your [...] your living situation today? I have a [facility] place to live 11/26/2023 Sex and Gender Information Value Date Recorded Sex Assigned at Female 11/26/2023 6:07 AM CDT Gender Identity Female 11/26/2023 6:07 AM CDT Sexual Orientation Straight 11/26/2023 6: 07 AM CDT documented as of this encounter Last Filed Vital Signs Vital Sign Reading [...] Mass Index 30.71 12/01/2023 9:41 AM CDT documented in this encounter Consult Notes * Héctor Jules M.D., M.B.A. - 12/01/2023 10:00 AM CDT SUBJECTIVE HISTORY OF PRESENT ILLNESS This is a 58 year old female lifetime nonsmoker with a history of hypothyroidism, kidney stones whois coming to Pulmonary Clinic to review short interval CT chest scan in the setting of recent infiltrates and nodules in the left lower lobe. On October 05, 2023, she went to the emergency department with chest tightness and was found to have a CT chest showing left-sided airspace opacities, enlargedleft mediastinal/hilar lymphadenopathy for which he was given doxycycline and prednisone and sent for pulmonary follow up. She was seen as a non isud-ib-erqv virtual consultation with Dr. Soto on 11/02/2023 who recommended short interval chest CT scan. She went to the ED w/ w/ a few days of retrosternal chest tightness and after abx/steroids of 1 week, symptoms resolved. She denied ever having SOB or currently. She has a cough (dry) for her whole life. She denies runny nose, allergies, sore throat, swollen LAD, f/c/ns, weight loss, wheezing. 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 She is often outdoors - gardening. She walks outside daily in the [place] (feeds birds around her house) and she likes camping once a year. She visited caves in [place] a couple years ago - she denies exposure to bats. She denies hiking. She denies exposure to barn animals, parrots. She denies mold/fungi exposurein the house. She does use outdoor wood burner. She has FH of aunt on her mom's side (lung cancer),dad emphysema. She does not smoke cigarettes or use drugs. She has never had chemotherapy, immunosuppression or radiation before. REVIEW OF SYSTEMS Negative OBJECTIVE Vitals: 12/01/23 0941 BP: 144/75 Pulse: 61 Temp: 36.9 ??C SpO2: 98% Physical Exam General: Well-appearing female in no acute distress Neuro: Alert, awake, following commands, responds appropriately Cardio: Regular rate and rhythm Pulm: Clear to auscultation bilaterally, no use of accessory muscles for breathing Abdomen: no tenderness to palpation throughout Musculoskeletal: No peripheral edema Skin: No visible rashes ASSESSMENT / PLAN This is a 58 year old female lifetime nonsmoker with a history of hypothyroidism, kidney stones whois coming to Pulmonary Clinic d/t left-sided airspace opacities, enlarged left mediastinal/hilar lymphadenopathy. These findings were noticed in the emergency department after she came for chest tight ness for which he was given doxycycline and prednisone and sent for pulmonary follow up. She is nowasymptomatic. She does have exposures to the outdoors and likely mold/fungi. Given the largely unilateral findings of pulmonary nodules and infrahilar lymphadenopathy, this current picture points more towards pulmonary fungal disease. It would be rather unusual for sarcoidosis or pulmonary malignancy/metastatic disease to have a unilateral appearance. At this time we would favor serial CT imagingin an asymptomatic individual who is at immunocompetent. -Ct scan in 6m w/ f/u Patient was seen and discussed with supervising consultant teacher Dr. Manzanares. Associated attestation - Enrico Manzanares Jr., M.D. - 12/01/2023 2:42 PM CDT I saw and evaluated the patient, participating in the wright portions of the service. I reviewed Dr. Héctor Jules M.D., M.B.A.'s note and I agree with his findings and plan. We discussed that the findings of the CT chest strongly suggest a granulomatous process, possibly prior histoplasmosis. She has no symptoms and we are encouraged that there has been no exchange floor manager the last 2 months. We discussed various options and she is amenable to ongoing observation and repeating a CT chest in 6 months. She will contact us sooner if she develops any symptoms. documented in this encounter Plan of Treatment Scheduled Orders Name Type Priority Associated Diagnoses Orde r Schedule CT Chest without IV Contrast Imaging RAD - Routine (most inpatients and all outpatients) Lymphadenopathy Mediastinum Nodule Pulmonary Expected: 06/02/2024, Expires: 11/30/2024 Scheduled Referrals Name Type Priority Associated Diagnoses Orde r Schedule Pulmonary Medicine office visit (clinic) Outpatient Referral Routine Expected: 06/02/2024, Expires: 03/02/2025 documented as of this encounter Visit Diagnoses Diagnosis Lymphadenopathy Mediastinum- Primary Nodule Pulmonary documented in this encounter Care Teams Professor Of Geology Relationship Specialty Start Date End Date lAda Fulton External Primary Care Physician 07/27/20 documented as of this encounter
--- OUTSIDE RECORDS SUMMARY | 2024-01-26 10:06 | XMS_ITS | Encounter Summary ---
Author Organization [facility] Address [address] [place] [address] Support Name Relationship Address Phone Caden Arauz Emergency Contact [address] [place] [address] Liliana Santos Emergency Contact [address] [place] [address] Care Team Providers Care Telecommunications Professional Name Role Phone Unavailable Primary Care Provider Unavailabl e Encounter Details Date Type Department Care Team (Late st Contact Info) Description 11/02/2023 Virtual Visit Division of Pulmonary Medicine in [place], [place] [address] [place] [address] Franky Soto M.D. [address] [place] [address] Eosinophilia Pulmonary With Infiltrate (HCC) (Primary Dx) Social History Tobacco Use Types Packs/Day Years Used Date Smoking Tobacco: Never Assessed Nutrition Answer Date Recorded Nutrition: EVOO Fat Source Unknown 10/11 Nutrition: Servings of Fruits/Vegetables per Day Not on file 10/12/2023 Dental Answer Date Recorded Dental: Regular Dentist Unknown 10/12/19 24 Sex and Gender Information Value Date Recorded Sex Assigned at Female 11/26/2023 6:07 AM CDT Gender Identity Female 11/26/2023 6:07 AM CDT Sexual Orientation Straight 11/26/2023 6: 07 AM CDT documented as of this encounter Consult Notes * Franky Soto M.D. - 11/02/2023 5:00 PM CDT SUBJECTIVE Ozv-Nznt-ag-Face Virtual Consultation REFERRAL SOURCE Self. REASON FOR CONSULT Pulmonary nodules. HISTORY OF PRESENT ILLNESS Pulmonary nodules I had the opportunity to review the medical record, interview, and review imaging on Ms. Dafne Arauz. Ms. Arauz is a very pleasant 58-year-old female who was recently ill and a CT scan of the chest was done, which showed numerous infiltrates and nodules in the left lower lobe. She was told thatshe should see a project reservoir engineer. ASSESSMENT / PLAN #1 Nodules versus infiltrates left lower lobe I think it would be first appropriate to repeat a short interval CT scan of the chest and review with one of our team to determine next steps. We will order a CT scan for approximately 2-3 weeks and make arrangements here for followup with one of the Pulmonary Team to make interpretations and next steps. I mentioned to Ms. Arauz that this could be a resolving infection, but if the scan is still a bnormal, then further evaluation could be considered. MARGIN CODE: No charge. Franky Soto M.D. CT CT Job ID: [id number] documented in this encounter Plan of Treatment Not on file documented as of this encounter Visit Diagnoses Diagnosis Eosinophilia Pulmonary With Infiltrate (HCC)- Primary documented in this encounter Care Teams Telecommunications Professional Relationship Specialty Start Date End Date Alda Fulton External Primary Care Physician 07/27/20 documented as of this encounter
--- OUTSIDE RECORDS SUMMARY | 2024-01-26 10:06 | XMS_ITS | Encounter Summary ---
Author Organization [facility] Address [address] [place] [address] Support Name Relationship Address Phone Caden Arauz Emergency Contact [address] [place] [address] Liliana Santos Emergency Contact [address] [place] [address] Care Team Providers Care Freight Agent Name Role Phone Unavailable Primary Care Provider Unavailabl e Reason for Referral * MRI/CAT/PET Scan (Routine) - Closed Specialty Diagnoses / Procedures Referred By Katlyn gallagher Referred To Contact Radiology Diagnoses Nodules Pulmonary Multiple Procedures CT Chest without IV Contrast Franky Soto M.D. [address] [place] [address] [facility] Referral ID Status Reason Start Date Expiration Date Visits Re quested Visits Authorized [id number] Closed 11/02/2023 11/01/2024 1 1 Reason for Visit * MRI/CAT/PET Scan (Routine) - Closed Specialty Diagnoses / Procedures Referred By Katlyn gallagher Referred To Contact Radiology Diagnoses Nodules Pulmonary Multiple Procedures CT Chest without IV Contrast Franky Soto M.D. [address] [place] [address] [facility] Referral ID Status Reason Start Date Expiration Date Visits Re quested Visits Authorized [id number] Closed 11/02/2023 11/01/2024 1 1 Encounter Details Date Type Department Care Team (Latest Contact Info) Description 12/01/2023 6:52 AM CDT - 12/01/2023 11:59 PM CDT Hospital Encounter Department of Radiology, [facility], in [place], [place] [address] [place] [address] Franky Soto M.D. [address] [place] [address] Nodules Pulmonary Multiple Discharge Disposition: Home or Self Care Social History Tobacco Use Types Packs/Day Years Used Date Smoking Tobacco: Never Smokeless Tobacco: Never [facility] Utilities Answer Date Recorded In the past 12 months has th e electric, gas, oil, or water company [...] money to buy more. Never true 11/26/19 Within the past 12 months, t he [...] your living situation today? I have a [facility] place to live 11/26/2023 Sex and Gender Information Value Date Recorded Sex Assigned at Female 11/26/2023 6:07 AM CDT Gender Identity Female 11/26/2023 6:07 AM CDT Sexual Orientation Straight 11/26/2023 6: 07 AM CDT documented as of this encounter Medications at Time of Discharge Medication Sig Dispensed Refills Start Date End Date levothyroxine (SYNTHROID, LEVOTHROID) 112 mcg tablet 12/26/2001 documented as of this encounter Plan of Treatment Not on file documented as of this encounter Procedures Procedure Name Priority Date/Time Associated Diagnosis Comments CT CHEST WITHOUT IV CONTRAST RAD - Routine (most inpatients and all outpatients) 12/01/2023 7:21 AM CDT Nodules Pulmonary Multiple documented in this encounter Results * CT Chest without [...] lung base (series 3, image 317 and [id number] in series 1000). Dominant nodule contacts the thickened inferolateral left major fissure (series 6, image 26). Multiple satellite lymphatic distribution (peribronchovascular, interlobular septal, centrilobular, subpleural, and perifissural) noncalcified solid pulmonary nodules measuring between sub-3 mm and 13 mm greatest dimension. Dominant satellite nodule measures 13 mm x 10 mm in the inferior lingula (series 3, image 361 and [id number]-au-dogi in series 1000). Dominant solid nodule contacts [...] leftlung base (series 3, image 317 and [id number] in series 1000). Dominant nodule contacts the thickened inferolateral left major fissure(series 6, image 26). Multiple satellite lymphatic distribution (peribronchovascular,interlobular septal, centrilobular, subpleural, and perifissural)noncalcified solid pulmonary nodules measuring between sub-3 mm and 13 mmgreatest dimension. Dominant satellite nodule measures 13 mm x 10 mm in the inferior lingula(series 3, image 361 and [id number]-xu-aghd in series 1000). Dominant solid nodule contacts the thickened left major fissure (series 6,image 28). Similar scattered noncalcified solid pulmonary nodules in the remainingbilateral lobes of the lungs measuring between sub-3 mm and 7 mm greatestdimension. Examples: Sub-3 mm, subpleural, peripheral left upper lobe anterior segment (series3, image 96). Sub-3 mm, centrilobular, peripheral anterior right apex (series 3, [id number]). 7 mm x 3 mm, subpleural, peripheral [...] this encounter Visit Diagnoses Diagnosis Nodules Pulmonary Multiple documented in this encounter Care Teams Freight Agent Relationship Specialty Start Date End Date Alda Fulton External Primary Care Physician 07/27/20 documented as of this encounter
== END 2024-01-26 10:01 | disposition home or self-care (01) ==
PROVIDERS: PCP Family Medicine; Visit Provider Family Medicine
DX: E89.0 Postprocedural hypothyroidism (principal); R53.83 Other fatigue; Z13.220 Encounter for screening for lipoid disorders; Z13.228 Encounter for screening for other metabolic disorders
CPT/HCPCS: 80053; 80061; 84443

== ENCOUNTER 2024-02-23 06:25 | Outpatient (CLI) | payer BC, SELFPAY ==
--- OUTSIDE RECORDS SUMMARY | 2024-02-23 06:28 | XMS_ITS | Encounter Summary ---
Author Organization [facility] Address [address] [place] [address] Support Name Relationship Address Phone Caden Arauz Personal Relationship [address] [place] [address] Liliana Santos Personal Relationship [phone] [place] [address] Care Team Providers Care Right Of Way Cutter Name Role Phone Unavailable Primary Care Provider Unavailabl e Reason for Visit * Reason Onset Date Comments Pre-visit Intake 11/30/2023 Encounter Details Date Type Department Care Team (Latest Contact Info) Description 11/30/2023 3:45 PM CDT Clinical Communication Virtual Review in [place], [place] [address] [place] [address] Pre-visit Intake Social History Tobacco Use Types Packs/Day Years Used Date Smoking Tobacco: Never Smokeless Tobacco: Never Tobacco Cessation:Counseling Given: Not Answered [facility] Utilities Answer Date Recorded In the [...] your living situation today? I have a [facility] place to live 11/26/2023 Sex and Gender Information Value Date Recorded Sex Assigned at Female 11/26/2023 6:07 AM CDT Gender Identity Female 11/26/2023 6:07 AM CDT Sexual Orientation Straight 11/26/2023 6: 07 AM CDT documented as of this encounter Plan of Treatment Not on file documented as of this encounter Visit Diagnoses Not on filedocumented in this encounter Care Teams Right Of Way Cutter Relationship Specialty Start Date End Date Alda Fulton External Primary Care Physician 07/27/20 documented as of this encounter
--- OUTSIDE RECORDS SUMMARY | 2024-02-23 06:28 | XMS_ITS | Referral Summary ---
Author Organization [facility] Address [address] [place] [address] Support Name Relationship Address Phone Caden Arauz Personal Relationship [address] [place] [address] Liliana Santos Personal Relationship [phone] [place] [address] Care Team Providers Care Training Professional Name Role Phone Unavailable Primary Care Provider Unavailabl e Source Comments Patient records contain information from all sites at [facility]. For routine questions regarding patient records, call [phone] during business hours, M-F 8:00 AM - 5:00 PM Central Time. Record requests for emergency care only can be directed to [phone] at any time.[facility] Encounters Date Type Department Care Team Description 12/01/2023 6:52 AM CDT - 12/01/2023 11:59 PM CDT Hospital Encounter Department of Radiology, [facility], in [place], [place] [address] [place] [phone] Franky Soto M.D. Nodules Pulmonary Multiple Discharge Disposition: Home or Self Care 12/01/2023 10:00 AM CDT Comprehensive Visit Division of Pulmonary Medicine in [place], [place] [address] [place] [phone] Héctor Jules M.D., M.B.A. Lymphadenopathy Mediastinum (Primary Dx); Nodule Pulmonary 11/30/2023 3:45 PM CDT Clinical Communication Virtual Review in [place], [place] [address] [place] [address] Pre-visit Intake from Last 3 Months Allergies Active Allergy Reactions Criticality Noted Date Comments Adhesive Rash 11/30/2023 Codeine Rash 11/30/2023 Methimazole Other (see comments) 11/30/2023 Medications Medication Sig Dispensed Refills Start Date End Date Status levothyroxine (SYNTHROID, LEVOTHROID) 112 mcg tablet 12/26/2001 Active Social History Tobacco Use Types Packs/Day Years Used Date Smoking Tobacco: Never Smokeless Tobacco: Never Tobacco Cessation:Counseling Given: Not Answered [facility] Utilities Answer Date Recorded In the past 12 months has th e [place], gas, oil, or water company threatened to [...] your living situation today? I have a [facility] place to live 11/26/2023 Sex and [...] on file Medical Devices Implanted Type Area General Office Worker Device Identifier Shelf Expiration Date Model / [...] lung base (series 3, image 317 and [id number] in series 1000). Dominant nodule contacts the thickened inferolateral left major fissure (series 6, image 26). Multiple satellite lymphatic distribution (peribronchovascular, interlobular septal, centrilobular, subpleural, and perifissural) noncalcified solid pulmonary nodules measuring between sub-3 mm and 13 mm greatest dimension. Dominant satellite nodule measures 13 mm x 10 mm in the inferior lingula (series 3, image 361 and [id number] in series 1000). Dominant solid nodule contacts [...] leftlung base (series 3, image 317 and [id number] in series 1000). Dominant nodule contacts the thickened inferolateral left major fissure(series 6, image 26). Multiple satellite lymphatic distribution (peribronchovascular,interlobular septal, centrilobular, subpleural, and perifissural)noncalcified solid pulmonary nodules measuring between sub-3 mm and 13 mmgreatest dimension. Dominant satellite nodule measures 13 mm x 10 mm in the inferior lingula(series 3, image 361 and toek-bu-pvcu in series 1000). Dominant solid nodule contacts the thickened left major fissure (series 6,image 28). Similar scattered noncalcified solid pulmonary nodules in the remainingbilateral lobes of the lungs measuring between sub-3 mm and 7 mm greatestdimension. Examples: Sub-3 mm, subpleural, peripheral left upper lobe anterior segment (series3, image 96). Sub-3 mm, centrilobular, peripheral anterior right apex (series 3, [id number]). 7 mm x 3 mm, subpleural, peripheral [...] PROCEDURES from Last 3 Months Care Teams Training Professional Relationship Specialty Start Date End Date Alda Fulton External Primary Care Physician 07/27/20
--- OUTSIDE RECORDS SUMMARY | 2024-02-23 06:28 | XMS_ITS | Encounter Summary ---
Author Organization [facility] Address [address] [place] [address] Support Name Relationship Address Phone Caden Arauz Personal Relationship [address] [place] [address] Liliana Santos Personal Relationship [address] [place] [address] Care Team Providers Care Pigment Furnace Tender Name Role Phone Unavailable Primary Care Provider Unavailabl e Reason for Referral * MRI/CAT/PET Scan (Routine) - Closed Specialty Diagnoses / Procedures Referred By Katlyn gallagher Referred To Contact Radiology Diagnoses Nodules Pulmonary Multiple Procedures CT Chest without IV Contrast Franky Soto M.D. [address] [place] [address] [facility] Referral ID Status Reason Start Date Expiration Date Visits Re quested Visits Authorized [id number] Closed 11/02/2023 11/01/2024 1 1 Encounter Details Date Type Department Care Team (Late st Contact Info) Description 11/02/2023 Orders Only Division of Pulmonary Medicine in [place], [place] [address] [place] [address] Franky Soto M.D. [address] [place] [phone] Nodules Pulmonary Multiple (Primary Dx) Social History Tobacco Use Types Packs/Day Years Used Date Smoking Tobacco: Never Assessed [facility] Utilities Answer Date Recorded In [...] your living situation today? I have a [facility] place to live 11/26/2023 Sex and [...] lung base (series 3, image 317 and [id number]-[id number] in series 1000). Dominant nodule contacts the thickened inferolateral left major fissure (series 6, image 26). Multiple satellite lymphatic distribution (peribronchovascular, interlobular septal, centrilobular, subpleural, and perifissural) noncalcified solid pulmonary nodules measuring between sub-3 mm and 13 mm greatest dimension. Dominant satellite nodule measures 13 mm x 10 mm in the inferior lingula (series 3, image 361 and [id number] in series 1000). Dominant solid nodule contacts [...] leftlung base (series 3, image 317 and vxzl-ue-sqzp in series 1000). Dominant nodule contacts the thickened inferolateral left major fissure(series 6, image 26). Multiple satellite lymphatic distribution (peribronchovascular,interlobular septal, centrilobular, subpleural, and perifissural)noncalcified solid pulmonary nodules measuring between sub-3 mm and 13 mmgreatest dimension. Dominant satellite nodule measures 13 mm x 10 mm in the inferior lingula(series 3, image 361 and gycx-du-srlq in series 1000). Dominant solid nodule contacts [...] Multiple documented in this encounter Care Teams Pigment Furnace Tender Relationship Specialty Start Date End Date Alda Fulton External Primary Care Physician 07/27/20 documented as of this encounter
--- OUTSIDE RECORDS SUMMARY | 2024-02-23 06:28 | XMS_ITS ---
Author Organization [facility] Address [address] [place] [address] Support Name Relationship Address Phone Caden Arauz Personal Relationship [address] [place] [address] Liliana Santos Personal Relationship [phone] [place] [address] Care Team Providers Care Fermenting Cellars Receiver Name Role Phone Unavailable Unavailable Unavailable Surgery Details Not on file Complications Check Surgery Details section. Procedure Estimated Blood Loss Check Surgery Details section. Procedure Findings Check Surgery Details section. Procedure Specimens Taken Check Surgery Details section.
--- OUTSIDE RECORDS SUMMARY | 2024-02-23 06:28 | XMS_ITS | Encounter Summary ---
Author Organization [facility] Address [address] [place] [address] Support Name Relationship Address Phone Caden Arauz Personal Relationship [address] [place] [address] Liliana Santos Personal Relationship [phone] [place] [address] Care Team Providers Care Slimer Name Role Phone Unavailable Primary Care Provider Unavailabl e Reason for Referral * Outpatient (Routine) - Authorized Specialty Diagnoses / Procedures Referred By Contac t Referred To Contact Pulmonary Medicine Héctor Jules M.D., M.B.A. [address] [place] [address] [facility] Referral ID Status Reason Start Date Expiration Date V isits Requested Visits Authorized [id number] Authorized 12/01/2023 06/01/2025 1 1 Scheduling Instructions Schedule with Mr. Saldivar or resident or [facility] data processing systems consultant depending on schedule availability * MRI/CAT/PET Scan (Routine) - Authorized Specialty Diagnoses / Procedures Referred By Contac t Referred To Contact Radiology Diagnoses Lymphadenopathy Mediastinum Nodule Pulmonary Procedures CT Chest without IV Contrast Héctor Jules M.D., M.B.A. [address] [place] [phone] [facility] Referral ID Status Reason Start Date Expiration Date V isits Requested Visits Authorized [id number] Authorized 12/01/2023 11/30/2024 1 1 Reason for Visit * Appointment Request (Routine) - Closed Specialty Diagnoses / Procedures Referred By Katlyn gallagher Referred To Contact Pulmonary Medicine Diagnoses Nodules Pulmonary Multiple Referral ID Status Reason Start Date Expiration Date Visits Re quested Visits Authorized [id number] Closed 10/12/2023 10/11/2024 1 1 Encounter Details Date Type Department Care Team (Latest Contact Info) Description 12/01/2023 10:00 AM CDT Comprehensive Visit Division of Pulmonary Medicine in [place], [place] [address] [place] [address] Héctor Jules M.D., M.B.A. [address] [place] [phone] Lymphadenopathy Mediastinum (Primary Dx); Nodule Pulmonary Social History Tobacco Use Types Packs/Day Years Used Date Smoking Tobacco: Never Smokeless Tobacco: Never [facility] Utilities Answer Date Recorded In the past 12 months has [employer], gas, oil, or water [employer] threatened to shut off services in your [...] your living situation today? I have a [facility] place to live 11/26/2023 Sex and [...] up. She was seen as a non xsxb-[id number] virtual consultation with Dr. Soto on 11/02/2023 [...] weight loss, wheezing. 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 She is often outdoors - gardening. She walks outside daily in the [place] (feeds birds around her house) and she likes camping once a year. She visited caves in [place] a couple years ago - she denies [...] Patient was seen and discussed with supervising data processing systems consultant Dr. Manzanares. Associated attestation - Enrico Manzanares [...] are encouraged that there has been no changeover operator the last 2 months. We discussed various [...] Pulmonary documented in this encounter Care Teams Slimer Relationship Specialty Start Date End Date Alda Fulton External Primary Care Physician 07/27/20 documented as of this encounter
--- OUTSIDE RECORDS SUMMARY | 2024-02-23 06:28 | XMS_ITS | Clinical Summary ---
Author Organization [facility] Address [address] [place] [address] Support Name Relationship Address Phone Caden Arauz Personal Relationship [address] [place] [address] Liliana Santos Personal Relationship [phone] [place] [address] Care Team Providers Care Brattice Builder Name Role Phone Unavailable Primary Care Provider Unavailabl e Source Comments Patient records contain information from all sites at [facility]. For routine questions regarding patient records, call [phone] during business hours, M-F 8:00 AM - 5:00 PM Central Time. Record requests for emergency care only can be directed to [phone] at any time.[facility] Allergies Active Allergy Reactions Criticality Noted Date Comments Adhesive Rash 11/30/2023 Codeine Rash 11/30/2023 Methimazole Other (see comments) 11/30/2023 Medications Medication Sig Dispensed Refills Start Date End Date Status levothyroxine (SYNTHROID, LEVOTHROID) 112 mcg tablet 12/26/2001 Active Encounters Date Type Department Care Team Description 12/01/2023 10:00 AM CDT Comprehensive Visit Division of Pulmonary Medicine in [place], [place] [address] [place] [address] Héctor Jules M.D., M.B.A. Lymphadenopathy Mediastinum (Primary Dx); [facility] 12/01/2023 6:52 AM CDT - 12/01/2023 11:59 PM CDT Hospital Encounter Department of Radiology, [facility], in [place], [place] [address] [place] [address] Edell, Franky S, M.D. [facility] Multiple Discharge Disposition: Home or Self Care 11/30/2023 3:45 PM CDT Clinical Communication Virtual Review in [place], [place] [address] [place] [phone] Pre-visit Intake from Last 3 Months Social History Tobacco Use Types Packs/Day Years Used Date Smoking Tobacco: Never Smokeless Tobacco: Never Tobacco Cessation:Counseling Given: Not Answered [facility] Utilities Answer Date Recorded In the past 12 months has th e [employer] gas, oil, or water company threatened to [...] your living situation today? I have a [facility] place to live 11/26/2023 Sex and [...] function 1965 Depression Screening (Annual PHQ-2) 07/27/2023 Influenza Vaccine (#1) 2024 06/26/2023, 2021 DTaP,Tdap,and Td Vaccines (3 - Td or Tdap) 06/13/2032 06/13/2022, 02/24/2012, 04/03/2003 Zoster Vaccines Completed 01/23/2022, 11/22/2021 COVID-19 Vaccine Completed 06/26/2023, , 11/12/2021, Additional history exists Hepatitis B Vaccines Aged Out No long er eligible based on patient's age to complete this topic Pneumococcal vaccine (0-64 years) Aged Out No longer eligible based on patient's age to complete this topic Medical Devices Implanted Type Area Detail Maker And Fitter Device Identifier Shelf Expiration Date Model / [...] lung base (series 3, image 317 and [id number] in series 1000). Dominant nodule contacts the thickened inferolateral left major fissure (series 6, image 26). Multiple satellite lymphatic distribution (peribronchovascular, interlobular septal, centrilobular, subpleural, and perifissural) noncalcified solid pulmonary nodules measuring between sub-3 mm and 13 mm greatest dimension. Dominant satellite nodule measures 13 mm x 10 mm in the inferior lingula (series 3, image 361 and [id number] in series 1000). Dominant solid nodule contacts [...] leftlung base (series 3, image 317 and [id number]-vn-dgpf in series 1000). Dominant nodule contacts the thickened inferolateral left major fissure(series 6, image 26). Multiple satellite lymphatic distribution (peribronchovascular,interlobular septal, centrilobular, subpleural, and perifissural)noncalcified solid pulmonary nodules measuring between sub-3 mm and 13 mmgreatest dimension. Dominant satellite nodule measures 13 mm x 10 mm in the inferior lingula(series 3, image 361 and dahr-zj-qexo in series 1000). Dominant solid nodule contacts the thickened left major fissure (series 6,image 28). Similar scattered noncalcified solid pulmonary nodules in the remainingbilateral lobes of the lungs measuring between sub-3 mm and 7 mm greatestdimension. Examples: Sub-3 mm, subpleural, peripheral left upper lobe anterior segment (series3, image 96). Sub-3 mm, centrilobular, peripheral anterior right apex (series 3, [id number]). 7 mm x 3 mm, subpleural, peripheral [...] PROCEDURES from Last 3 Months Care Teams Brattice Builder Relationship Specialty Start Date End Date Alda Fulton External Primary Care Physician 07/27/20
--- OUTSIDE RECORDS SUMMARY | 2024-02-23 06:28 | XMS_ITS | Encounter Summary ---
Author Organization [facility] Address [address] [place] [address] Support Name Relationship Address Phone Caden Arauz Personal Relationship [address] [place] [address] Liliana Santos Personal Relationship [phone] [place] [address] Care Team Providers Care Employee Benefits Insurance Agent Name Role Phone Unavailable Primary Care Provider Unavailabl e Reason for Referral * MRI/CAT/PET Scan (Routine) - Closed Specialty Diagnoses / Procedures Referred By Katlyn gallagher Referred To Contact Radiology Diagnoses [facility] Multiple Procedures CT Chest without IV Contrast Franky Soto M.D. [address] [place] [address] [facility] Referral ID Status Reason Start Date Expiration Date Visits Re quested Visits Authorized [id number] Closed 11/02/2023 11/01/2024 1 1 Reason for Visit * MRI/CAT/PET Scan (Routine) - Closed Specialty Diagnoses / Procedures Referred By Katlyn gallagher Referred To Contact Radiology Diagnoses [facility] Multiple Procedures CT Chest without IV Contrast Franky Soto M.D. [address] [place] [address] [facility] Referral ID Status Reason Start Date Expiration Date Visits Re quested Visits Authorized [id number] Closed 11/02/2023 11/01/2024 1 1 Encounter Details Date Type Department Care Team (Latest Contact Info) Description 12/01/2023 6:52 AM CDT - 12/01/2023 11:59 PM CDT Hospital Encounter Department of Radiology, [facility], in [place], [place] [address] [place] [address] Franky Soto M.D. [address] [place] [address] [facility] Multiple Discharge Disposition: Home or Self Care Social History Tobacco Use Types Packs/Day Years Used Date Smoking Tobacco: Never Smokeless Tobacco: Never [facility] Utilities Answer Date Recorded In the [...] your living situation today? I have a [facility] place to live 11/26/2023 Sex and Gender [...] lung base (series 3, image 317 and roni-ug-tigr in series 1000). Dominant nodule contacts the thickened inferolateral left major fissure (series 6, image 26). Multiple satellite lymphatic distribution (peribronchovascular, interlobular septal, centrilobular, subpleural, and perifissural) noncalcified solid pulmonary nodules measuring between sub-3 mm and 13 mm greatest dimension. Dominant satellite nodule measures 13 mm x 10 mm in the inferior lingula (series 3, image 361 and ufei-dg-uons in series 1000). Dominant solid nodule contacts [...] leftlung base (series 3, image 317 and ggij-ru-qdht in series 1000). Dominant nodule contacts the thickened inferolateral left major fissure(series 6, image 26). Multiple satellite lymphatic distribution (peribronchovascular,interlobular septal, centrilobular, subpleural, and perifissural)noncalcified solid pulmonary nodules measuring between sub-3 mm and 13 mmgreatest dimension. Dominant satellite nodule measures 13 mm x 10 mm in the inferior lingula(series 3, image 361 and mhag-du-cprj in series 1000). Dominant solid nodule contacts the thickened left major fissure (series 6,image 28). Similar scattered noncalcified solid pulmonary nodules in the remainingbilateral lobes of the lungs measuring between sub-3 mm and 7 mm greatestdimension. Examples: Sub-3 mm, subpleural, peripheral left upper lobe anterior segment (series3, image 96). Sub-3 mm, centrilobular, peripheral anterior right apex (series 3, [id number]). 7 mm x 3 mm, subpleural, peripheral [...] Multiple documented in this encounter Care Teams Employee Benefits Insurance Agent Relationship Specialty Start Date End Date Alda Fulton External Primary Care Physician 07/27/20 documented as of this encounter
--- NOTE | 2024-02-23 08:09 | W.ANESCHARGE ---
Anesthesia Charges Start Date/Time Anesthesia Start Date: 02/23/24 Anesthesia Start Time: 07:39 Stop Date/Time Anesthesia Stop Date: 02/23/24 Anesthesia Stop Time: 08:05
--- NOTE | 2024-02-23 11:47 | W.ANESCHARGE ---
Anesthesia Charges Start Date/Time Anesthesia Start Date: 02/23/24 Anesthesia Start Time: 07:39 Stop Date/Time Anesthesia Stop Date: 02/23/24 Anesthesia Stop Time: 08:05
== END 2024-02-23 06:26 | disposition home or self-care (01) ==
LOC: OP CLINIC 06:26
PROVIDERS: PCP Family Medicine; Visit Provider Surgery
DX: Z12.11 Encounter for screening for malignant neoplasm of colon (principal)
CPT/HCPCS: 00811; 00812; 45378; J2704

== ENCOUNTER 2024-03-30 15:00 | Outpatient (RCR) | payer BC, SELFPAY ==
--- NOTE | 2024-01-27 15:38 | OT.OPOE ---
OT Outpatient Ortho Eval OT Outpatient Ortho Eval* Start: 01/27/24 13:57 Freq: Status: Active Protocol: Document 01/27/24 13:57 AMAN (Rec: 01/27/24 15:37 AMAN [id number]) E-signed By Anna Lazaro, OTR/L, CLT OT OP Ortho Eval Details Complexity Complexity Low Insurance Information Insurance Information [employer] Outpatient History/Precautions Current Condition/Medical Diagnosis Referring Provider Dr. Pooja Mosqueda Medical Diagnoses Carpal Tunnel of the R wrist G56.01 Treatment Diagnosis Paresthesia of Skin, R20.2 Pain in Right Hand, M79.641 Date of Onset December 01, 2023 Other Conditions Carpal tunnel syndrome of right wrist (Suspected ~2023) G56.01 - Carpal tunnel syndrome, right upper limb ( ICD-10) Screening, lipid (Acute) Z13. 220 - Encounter for screening for lipoid disorders (ICD-10) History of Graves' disease ( Acute) Z86.39 - Personal history of other endocrine, nutritional and metabolic disease (ICD-10) Right hip pain (Acute) M25.551 - Pain in right hip ( ICD-10) Hypothyroidism (Acute 12/14/09 ) E03.9 - Hypothyroidism, unspecified (ICD-10) Medical History (Updated 01/25 @ 10:15 by Alpa Mosqueda MD) Hemorrhoidal skin tag K64.4 - Residual hemorrhoidal skin tags (ICD-10) Tenosynovitis of thumb M65.9 - Synovitis and tenosynovitis, unspecified ( ICD-10) Bursitis of right hip M70.71 - Other bursitis of hip , right hip (ICD-10) Right hip pain M25.551 - Pain in right hip ( ICD-10) Health care directive on file Z78.9 - Other specified health status (ICD-10) History of hyperthyroidism () Z86.39 - Personal history of other endocrine, nutritional and metabolic disease (ICD-10) History of nephrolithotomy with removal of calculi Z98.890 - Other specified postprocedural states (ICD-10) Z87.442 - Personal history of urinary calculi (ICD-10) Surgical History (Updated 09/19 @ 10:15 by Alpa Mosqueda MD) H/O radioactive iodine thyroid ablation (2009) Z92.3 - Personal history of irradiation (ICD-10) Status post Achilles tendon repair Z98.890 - Other specified postprocedural states (ICD-10) History of tonsillectomy and adenoidectomy (1968) Z90.89 - Acquired absence of other organs (ICD-10) History of hysterectomy (~2001 ) Z90.710 - Acquired absence of both cervix and uterus (ICD-10 ) History of cholecystectomy (~ 2019) Z90.49 - Acquired absence of other specified parts of digestive tract (ICD-10) History of appendectomy (~2003 ) Medical/Functional History Medical History Reviewed Yes Prior Level of Function/Mobility , 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 Initially. patient reported R hand swelling, which has done away, pain level has decreased but now she noticed tingling and numbness in all 5 digits of her R hand. Strength and pinch testing show that for her gender/age she is above average. No deficits with AROM, no visual abnormalities present at physical exam. Patient states her symptoms (the tingling and numbness is worse when she first wakes up in the morning. Pain Assessment Pain Pain Yes Pain Comments 08/05 R hand (dominant) palm side Hand Pinch/Conductor Pullman Strength Hand Pinch/Conductor Pullman Strength Hand Pinch/Conductor Pullman Strength Left Hand,Right Hand Left Hand Conductor Pullman Strength Position 1 in Elbow 65 Flexion (lbs) Conductor Pullman Strength Position 2 in Elbow 70 Extension (lbs) Lateral Pinch Strength (lbs) 16 Three Point Pinch (lbs) 18 Tip Pinch Strength (lbs) 14 Right Hand Conductor Pullman Strength Position 1 in Elbow 65 Flexion (lbs) Conductor Pullman Strength Position 2 in Elbow 74 Extension (lbs) Lateral Pinch Strength (lbs) 16 Three Point Pinch (lbs) 14 Tip Pinch Strength (lbs) 14 Comments Comments R hand had discomfort in the palm of wrist with 3 point pinch OT Objective Data Observations/Posture/Limb Appearance Objective Observations Normal Coloring is even, no redness/ discoloration Skin/Wounds/Edema Comments No wounds, no edema Sensation Sensation Assessment Summary Comments diminished sensation to light touch (both ulnar and median nerve pathways) of the R hand (all 5 digits and palm) Upper Extremity Special Tests Median Nerve-Carpal Tunnel Wrist Phalen Test Negative Left,Negative Right Wrist Tinel Test Negative Left,Negative Right Durkan's Test Negative Left,Negative Right OT Problems Problems Problems Decreased Dexterity,Pain, Decreased Coordination,Sensory Sensitivity,Lifting,Gripping, Pinching Problems Comments When doing a lot of writing, patient's R hand goes tingling and numb in all the finger tips. Despite not showing weakness in button tufter testing, patient reports that she doesn't feel confident picking items up with the R hand. Other Problems Writing,Opening Containers Patient Potential Excellent Assessment Assessment Assessment Patient is a 58-year-old R hand dominant female who had a hand trauma back in November 2023 (did not go to the doctor after this occurred as she thought the pain would go away ). Initially. patient reported R hand swelling, which has done away, pain level has decreased but now she noticed tingling and numbness in all 5 digits of her R hand. Strength and pinch testing show that for her gender/age she is above average. No deficits with AROM, no visual abnormalities present at physical exam. Patient states her symptoms (the tingling and numbness is worse when she first wakes up in the morning. Problem list includes: Pain to the R (dominant hand); Paresthesia: numbness and/or tingling, which can impair the patient?s fine motor control of affected digits; Declined endurance of affective hand for repetitive activity (hand feels numb when writing for >1 min; Declined functional use of affective hand for ADL tasks; Declined knowledge of ergonomic education, proper body mechanics and joint protection during ADL?s, and in the work environment. PLAN: Instruction of home program with verbal and written instructions; Ergonomics, body mechanics, adaptive equipment and adaptations as needed during ADL?s; Splint don/doff, wearing schedule and hygiene; Education on CTS, basic anatomy and causes of compression; Pt will be referred back to referring physician/surgeon should symptoms persist or worsen. Patient is agreeable to the plan and motivated to make progress. Occupational Therapy Treatment Plan - OP Potential Rehabilitation Potential Excellent Barriers Barriers to goal attainment None Noted Set Goals Goals Set with Patient Yes Goals Goals 1. Patient will have a decrease in score on the [place] Hand Questionnaire ( lower score =less impairment). 2. Patient upon discharge from therapy will be independent with home program and have returned to their premorbid level of function 3. Patient will demonstrate independence with adaptations and adaptive equipment during ADL?s w/o verbal cues. 4. Patient will report resolution of paresthesia and/ or pain to affected R hand ( her dominant UE). Target Date 12 weeks Treatment Plan Treatment Plan Evaluation,Joint Mobilization, Manual Therapy,Splinting, Ultrasound,Therapeutic Exercise,Self Care/Home Management,Education Expected Frequency 1-2x Week Expected Duration 12 weeks Home Program Home Program Home Program Initiated Home Program Specifics Discussed and provided handouts for elbow and wrist NOC bracing. Exercise program: postural muscles (rows with theraband), wrist extension with 2-3 lb weight (SLOW and controlled with 5 second holds at the top ). Certification Certification Statement I Certify That: Therapy Services Provided, Therapy Plan Established, Therapy Plan Reviewed Certification Information Clinic ID # [id number] Initial Certification Date 01/27/24 Recertification Due Date 04/26/24 Provider Signature Required Yes Provider Signature Shows Agreement With POC & Medical Necessity Physician NPI Number Write NPI# Here Physician Comment/Change Comment or Changes Physician Signature & Date Requested Please Sign/Date Here
== END 2024-05-18 15:20 | disposition home or self-care (01) ==
PROVIDERS: PCP Family Medicine; Visit Provider Family Medicine
DX: G56.01 Carpal tunnel syndrome, right upper limb (principal); R20.2 Paresthesia of skin; M79.641 Pain in right hand; Z51.89 Encounter for other specified aftercare
CPT/HCPCS: 97035; 97110; 97140; 97165; X5282

== ENCOUNTER 2024-03-31 16:00 | Outpatient (RCR) | payer BC, SELFPAY | END 2024-05-26 16:55 | disposition home or self-care (01) | PROVIDERS: PCP Family Medicine; Visit Provider Orthopaedic Surgery Sports Medicine | DX: M75.101 Unspecified rotator cuff tear or rupture of right shoulder, not specified as traumatic (principal); M25.511 Pain in right shoulder; Z51.89 Encounter for other specified aftercare | CPT/HCPCS: 97110; 97140; 97161 ==

== ENCOUNTER 2025-01-31 10:12 | Outpatient (CLI) | payer BC, SELFPAY | END 2025-01-31 10:13 | disposition home or self-care (01) | LOC: NFLDREF 10:13 | PROVIDERS: PCP Family Medicine; Visit Provider Family Medicine | DX: E03.9 Hypothyroidism, unspecified (principal) | CPT/HCPCS: 84439; 84443 ==

== ENCOUNTER 2025-06-23 07:56 | Outpatient (CLI) | payer BC, SELFPAY ==
--- NOTE | 2025-06-23 08:15 | CRLHL7_ITS ---
For Patients: As a result of the Century Cures Act, medical imaging exams and procedure reports are released immediately into your electronic medical record. You may view this report before your referring provider. If you have questions, please contact your health care provider. INDICATION: BILATERAL SCREENING MAMMOGRAM, ASYMPTOMATIC 60 Y/O FEMALE COMPARISON: 05/14/2023, 01/09/2020, 01/29/2018 TECHNIQUE: Digital mammogram in CC and MLO projections including computer-aided detection (CAD) and tomosynthesis. BREAST COMPOSITION: There are scattered areas of fibroglandular density. FINDINGS: No suspicious findings. ASSESSMENT: BI-RADS 1 Negative RECOMMENDATION: Annual screening mammogram. A lay language report of this examination will be provided to the patient. Dictated by: Blaze Beach MD @ 06/26/2025 10:11:55 (Electronically Signed)
== END 2025-06-23 07:57 | disposition home or self-care (01) ==
LOC: MAMMO 07:57
PROVIDERS: PCP Family Medicine; Visit Provider Family Medicine
DX: Z12.31 Encounter for screening mammogram for malignant neoplasm of breast (principal)
CPT/HCPCS: 77063; 77067